=== PATIENT | female | born 1985 | race Caucasian/White ===

== ENCOUNTER → 2018-11-16 | Outpatient (CLI) | payer OTHER ==
--- NOTE | 2018-11-16 13:56 | RADIOLOGY IMAGING REPORT ---
FACILITY: [facility] PATIENT NAME: Debbie Olivares : 1985 MR: [id number] V: [id number] EXAM DATE: ORDERING PHYSICIAN: DANINE REYES TECHNOLOGIST: Location: [facility] [place] Patient: Debbie Olivares : 1985 Visit/Account:[id number] Date of Sevice: 11/16/2018 EXAMINATION: PA and Lateral Chest 11/16/2018 12:42 PM HISTORY: Chronic cough. Patient reports cough for 6 weeks. COMPARISON: None FINDINGS: Cardiomediastinal contours: Normal Lungs and pleura: Lungs are voluminous but the patient is relatively asthenic which contributes to th is. No focal infiltrate or consolidation. Pleural spaces are clear. Bones/soft tissues: Moderate dextroscoliotic thoracolumbar curvature. No acute bony finding. IMPRESSION: 1. No acute cardiopulmonary abnormality. 2. Moderate thoracolumbar dextroscoliotic curvature. Report Dictated By: Parvez Lee MD at 11/16/2018 1:48 PM Report E-Signed By: Parvez Lee MD at 11/16/2018 1:50 PM WSN:[id number]
== END ==
LOC: RAD 12:39
PROVIDERS: ATTEND Nurse Practitioner Family
DX: R05 Cough (principal)
CPT/HCPCS: 71046